=== PATIENT | female | born 1960 | race Caucasian/White ===

== ENCOUNTER 2016-12-22 21:02 | Emergency (ER) | payer BC ==
[2015-04-05 16:35] VITALS: BMI 27.4
[~2016-12-22 21:02] MED LIST: DIAMOX250 MG PO; KEPPRA250 MG PO; LISINOPRIL10 MG PO; PROZAC10 MG PO
[2016-12-22 21:33] LABS: APPEARANCE CLEAR (CLEAR); BILIRUBIN NEGATIVE (NEGATIVE); COLOR YELLOW (YELLOW); EPITHELIAL CELLS NSEEN /hpf (0-5); GLUCOSE NEGATIVE (NEGATIVE); KETONE NEGATIVE (NEGATIVE); LEUKOCYTE ESTERASE 1+ (NEGATIVE); NITRITE POSITIVE (NEGATIVE); PROTEIN 1+ mg/dL (NEGATIVE); SPECIFIC GRAVITY 1.015 (1.005-1.020); UROBILINOGEN NORMAL (NORMAL); WHITE CELLS - URINE 25-50 /hpf (0-5)
[2016-12-22 21:34] LABS: BACTERIA MODERATE /hpf (NONE SEEN); CALCIUM OXALATE CRYSTALS 0-5 /hpf (NONE SEEN)
== END 2016-12-22 22:45 | disposition home or self-care (01) ==
LOC: D.ER 21:02
PROVIDERS: Emergency Medicine
DX: N39.0 Urinary tract infection, site not specified (principal); I10 Essential (primary) hypertension

== ENCOUNTER 2017-07-18 19:19 | Emergency (ER) | payer BC ==
[2015-04-05 16:35] VITALS: BMI 27.4
[2017-07-18 19:43] LABS: BASOPHILS 0.3 % (0-2); HEMATOCRIT 36.9 % (36.0-48.0); HEMOGLOBIN 12.6 g/dL (12-16); IMMATURE GRANULOCYTES 0.4 % (0-5); LYMPHOCYTES 35.4 % (15-50); MCH 30.7 pg (26.0-34.0); MCHC 34.1 g/dL (31.0-37.0); MEAN PLATELET VOLUME 10.9 fL (7.4-10.4); MONOCYTES 10.7 % (2-11); NEUTROPHILS 51.2 % (40-80); PLATELET COUNT 233 10x3/uL (130-400); RDW 12.4 % (11.5-14.5); WBC 9.4 10x3/uL (4.8-10.8)
[2017-07-18 19:59] LABS: INR 0.87 (0.85-1.17); PROTIME 11.5 SECONDS (11.6-15.0)
[2017-07-18 20:01] LABS: D-DIMER-QUANTITATIVE 0.31 ug/mLFEU (0.20-0.54)
[2017-07-18 20:06] LABS: ALBUMIN 3.3 g/dL (3.4-5.0); ALKALINE PHOSPHATASE 124 U/L (46-116); ALT (SGPT) 76 U/L (10-68); BILIRUBIN - TOTAL 0.22 mg/dL (0.2-1.3); CALC OSMOLALITY 277 mosm/kg (275-300); CARBON DIOXIDE 27.3 mmol/L (21.0-32.0); CHLORIDE - SERUM 104 mmol/L (98-107); GLUCOSE 119 mg/dL (74-106); POTASSIUM - SERUM 3.6 mmol/L (3.5-5.1); PROTEIN - SERUM 6.8 g/dL (6.4-8.2); SODIUM 140 mmol/L (136-145); UREA NITROGEN 8 mg/dL (7-18); eGFR NON AFRICAN AMERICAN 61 mL/min (90-120)
[2017-07-18 20:24] LABS: CKMB 0.8 U/L (0.0-3.6); CREATINE KINASE 576 UL (21-215); MAGNESIUM - SERUM 1.8 mg/dL (1.8-2.4); PRO BNP 287 pg/mL (0-125)
[2017-07-18 20:25] LABS: TROPONIN-I < 0.017 ng/mL (0.000-0.060)
== END 2017-07-18 22:11 | disposition home or self-care (01) ==
LOC: D.ER 19:19
PROVIDERS: Family Medicine
DX: J20.9 Acute bronchitis, unspecified (principal); J45.901 Unspecified asthma with (acute) exacerbation; I10 Essential (primary) hypertension

== ENCOUNTER 2017-12-03 20:38 | Emergency (ER) | payer BC ==
[~2017-12-03] VITALS: Ht 170.2 cm; Wt 81.8 kg
[2017-12-03 21:04] VITALS: Ht 170.2 cm; Wt 81.8 kg
[2017-12-03] MEDS ORDERED: ACETAZOLAMIDE250 MG PO (21:06)
[2017-12-03] MEDS ORDERED: LEVAQUIN500 MG PO (22:24)
[2017-12-03 22:31] VITALS: BP 136/94
== END 2017-12-03 22:32 | disposition home or self-care (01) ==
LOC: D.ER 20:38
DX: N39.0 Urinary tract infection, site not specified (principal); F17.200 Nicotine dependence, unspecified, uncomplicated

== ENCOUNTER 2018-04-24 21:19 | Emergency (ER) | payer BC ==
[~2018-04-24] VITALS: Ht 170.2 cm; Wt 78.2 kg
[~2018-04-24 21:19] MED LIST changes: +ACETAZOLAMIDE250 MG PO; +LEVAQUIN500 MG PO
[2018-04-24 21:22] VITALS: Ht 170.2 cm; Wt 78.2 kg
[2018-04-24] MEDS ORDERED: TORADOL10 MG PO (22:31)
[2018-04-24] MEDS ORDERED: ROBAXIN500 MG PO (22:31)
[2018-04-24 23:00] VITALS: BP 139/79
== END 2018-04-24 23:00 | disposition home or self-care (01) ==
LOC: D.ER 21:19
DX: M54.16 Radiculopathy, lumbar region (principal); M54.31 Sciatica, right side; G40.909 Epilepsy, unspecified, not intractable, without status epilepticus; F17.200 Nicotine dependence, unspecified, uncomplicated

== ENCOUNTER 2018-07-04 18:09 | Emergency (ER) | payer BC ==
[~2018-07-04] VITALS: Ht 170.2 cm; Wt 81.8 kg
[~2018-07-04 18:09] MED LIST changes: +ROBAXIN500 MG PO; +TORADOL10 MG PO
[2018-07-04 18:25] VITALS: Ht 170.2 cm; Wt 81.8 kg
[2018-07-04 19:15] LABS: BASOPHILS 0.4 % (0-2); EOSINOPHILS 0.3 % (0-7); HEMATOCRIT 40.2 % (36.0-48.0); HEMOGLOBIN 14.1 g/dL (12-16); IMMATURE GRANULOCYTES 0.3 % (0-5); LYMPHOCYTES 13.9 % (15-50); MCH 31.5 pg (26.0-34.0); MCHC 35.1 g/dL (31.0-37.0); MCV 89.7 fL (80.0-100.0); MONOCYTES 9.3 % (2-11); NEUTROPHILS 75.8 % (40-80); RBC 4.48 10x6/uL (4.00-5.40); RDW 12.7 % (11.5-14.5); WBC 10.5 10x3/uL (4.8-10.8)
[2018-07-04 19:17] LABS: PLATELET COUNT 294 10x3/uL (130-400)
[2018-07-04 19:32] LABS: ALBUMIN 3.8 g/dL (3.4-5.0); BILIRUBIN - TOTAL 0.48 mg/dL (0.2-1.3); CALCIUM 9.5 mg/dL (8.5-10.1); CARBON DIOXIDE 18.2 mmol/L (21.0-32.0); CREATININE - SERUM 1.1 mg/dL (0.6-1.3); POTASSIUM - SERUM 4.2 mmol/L (3.5-5.1); PROTEIN - SERUM 7.5 g/dL (6.4-8.2)
[2018-07-04] MEDS ORDERED: TAMIFLU75 MG PO (21:58)
[2018-07-04] MEDS ORDERED: TESSALON PERLE100 MG PO (21:58)
[2018-07-04] MEDS ORDERED: ZOFRAN ODT4 MG/UDTAB PO (21:59)
[2018-07-04 22:16] VITALS: BP 157/75
== END 2018-07-04 22:16 | disposition home or self-care (01) ==
LOC: D.ER 18:09
PROVIDERS: Family Medicine
DX: J11.1 Influenza due to unidentified influenza virus with other respiratory manifestations (principal); R00.0 Tachycardia, unspecified; R05 Cough; R68.83 Chills (without fever); M79.18 Myalgia, other site; F17.200 Nicotine dependence, unspecified, uncomplicated

== ENCOUNTER 2018-07-06 17:07 | Inpatient (IN) | payer BC ==
[~2018-07-06] VITALS: Ht 170.2 cm; Wt 81.6 kg
[~2018-07-06 17:07] MED LIST changes: +TAMIFLU75 MG PO; +TESSALON PERLE100 MG PO; +ZOFRAN ODT4 MG/UDTAB PO
[2018-07-06 18:18] LABS: BASOPHILS 0.5 % (0-2); EOSINOPHILS 0.5 % (0-7); HEMATOCRIT 39.1 % (36.0-48.0); HEMOGLOBIN 13.5 g/dL (12-16); IMMATURE GRANULOCYTES 0.3 % (0-5); MCH 30.8 pg (26.0-34.0); MCHC 34.5 g/dL (31.0-37.0); MCV 89.1 fL (80.0-100.0); MONOCYTES 14.5 % (2-11); NEUTROPHILS 71.2 % (40-80); PLATELET COUNT 259 10x3/uL (130-400); RBC 4.39 10x6/uL (4.00-5.40); RDW 12.6 % (11.5-14.5); WBC 10.3 10x3/uL (4.8-10.8)
[2018-07-06 18:32] LABS: ALBUMIN 3.6 g/dL (3.4-5.0); ANION GAP 19.9 mmol/L (8-16); BILIRUBIN - TOTAL 0.52 mg/dL (0.2-1.3); CALCIUM 9.6 mg/dL (8.5-10.1); CARBON DIOXIDE 18.8 mmol/L (21.0-32.0); CREATININE - SERUM 1.1 mg/dL (0.6-1.3); POTASSIUM - SERUM 3.7 mmol/L (3.5-5.1); PROTEIN - SERUM 7.7 g/dL (6.4-8.2)
[2018-07-06 19:28] LABS: APPEARANCE CLEAR (CLEAR); BILIRUBIN NEGATIVE (NEGATIVE); COLOR YELLOW (YELLOW); GLUCOSE NEGATIVE (NEGATIVE); KETONE NEGATIVE (NEGATIVE); NITRITE NEGATIVE (NEGATIVE); PROTEIN TRACE mg/dL (NEGATIVE); SPECIFIC GRAVITY 1.025 (1.005-1.020); UROBILINOGEN NORMAL (NORMAL)
[2018-07-06 19:29] LABS: EPITHELIAL CELLS NSEEN /hpf (0-5); RED CELLS - URINE RARE /hpf (0-5); WHITE CELLS - URINE NSEEN /hpf (0-5)
[2018-07-06 19:52] VITALS: BP 144/92
[2018-07-06 20:01] VITALS: BP 156/71
[2018-07-06 23:49] VITALS: BP 108/61; BMI 28.2
[2018-07-07 04:37] VITALS: BP 131/76
[2018-07-07 09:08] VITALS: BP 117/70
[2018-07-07 16:00] VITALS: BP 100/67
[2018-07-07 20:00] VITALS: BP 123/78
[2018-07-08] VITALS: BP 132/80
[2018-07-08 04:00] VITALS: BP 146/92
[2018-07-08 06:53] LABS: BASOPHILS 0.4 % (0-2); EOSINOPHILS 2.9 % (0-7); HEMOGLOBIN 11.4 g/dL (12-16); IMMATURE GRANULOCYTES 0.3 % (0-5); LYMPHOCYTES 26.4 % (15-50); MCHC 33.5 g/dL (31.0-37.0); MCV 89.5 fL (80.0-100.0); MEAN PLATELET VOLUME 11.8 fL (7.4-10.4); MONOCYTES 11.2 % (2-11); NEUTROPHILS 58.8 % (40-80); PLATELET COUNT 253 10x3/uL (130-400); RDW 12.8 % (11.5-14.5)
[2018-07-08 07:03] LABS: CALCIUM 8.6 mg/dL (8.5-10.1); CARBON DIOXIDE 21.4 mmol/L (21.0-32.0); POTASSIUM - SERUM 3.4 mmol/L (3.5-5.1)
[2018-07-08 07:08] LABS: WBC 7.6 10x3/uL (4.8-10.8)
[2018-07-08 08:24] VITALS: BP 135/81
[2018-07-08 12:00] VITALS: BP 102/59
[2018-07-08 16:13] VITALS: BP 146/75
--- NOTE | 2018-07-08 17:00 | MORECARE ---
CASE MANAGEMENT DISCHARGE SUMMARY PATIENT: JW MELLO UNIT: [id number] ADM DATE: 07/07/18 AGE: 58 : 62 SEX: F ROOM/BED: D.2234 AUTHOR: HOMAR VILLARREAL PHYSICIAN: REFERRING PHYSICIAN: CHUNG WOODRUFF MD DATE OF SERVICE: 07/08/18 Discharge Plan Patient Name: JW MELLO [facility] [facility] 1960 Planned Disposition: Home Anticipated Discharge Date: Discharge Date: Expected LOS: Initial Reviewer: [email or web address] Initial Review Date: 07/08/2018 Generated: 07/08/18 6:00 pm DCPIA - Discharge Planning Initial Assessment Updated by [email or web address]: Dianna Lunsford on 07/08/18 4:54 pm * Is the patient Alert and Oriented? Yes * How many steps to enter\exit or inside your home? 1 flight/0 * PCP Dr. Urena * [facility] * Preadmission Environment Home with Family * ADLs Independent * Equipment None * List name and contact numbers for known caregivers / representatives who currently or will assist patient after discharge: Matthew Mello - [facility] - [phone] * Verbal permission to speak to the caregivers and representatives has been obtained from the patient. Yes * Community resources currently utilized None * Additional services required to return to the preadmission environment? No * Can the patient safely return to the preadmission environment? Yes * Has this patient been hospitalized within the prior 30 days at any hospital? No Patient Name: JW MELLO Page 46323 at 1700 All edits/amendments must be made on the electronic document DICTATION DATE: 07/08/18 1700 BAG END SEWER: PAULINE 07/08/18 1700 RPT#: [id number] DC DATE: STATUS: ADM IN [facility] [address] [place] [address] END OF REPORT
--- NOTE | 2018-07-08 17:09 | MORECARE ---
CASE MANAGEMENT DISCHARGE SUMMARY PATIENT: JW MELLO UNIT: [id number] ADM DATE: 07/07/18 AGE: 58 : 62 SEX: F ROOM/BED: D.2234 AUTHOR: CHERELLE,DOC PHYSICIAN: REFERRING PHYSICIAN: CHUNG WOODRUFF MD DATE OF SERVICE: 07/08/18 Discharge Plan Patient Name: JW MELLO Facility: [facility]:[place] : 1960 Planned Disposition: Home Anticipated Discharge Date: Discharge Date: Expected LOS: Initial Reviewer: [email or web address] Initial Review Date: 07/08/2018 Generated: 07/08/18 6:08 pm Comments DCP- Discharge Planning Updated by [email or web address]: Dianna Lunsford on 07/08/18 4:[address] Patient Name: JW MELLO Admission Status: ER Accout number: [id number] Admission Date: 07-07-2018 : 1960 Admission Diagnosis: Attending: CHUNG WOODRUFF Current LOS: 1 Anticipated DC Date: Planned Disposition: Home Primary Insurance: [id number] [place] [facility] Discharge Planning Comments: CM met with patient to discuss discharge planning, she is alone in the room. She lives with her , 2 adult children and grand children. She is independent with all ADL's and IADL's. She does not have any DME or need any DME. Declines need for HHS. No needs identified. CM will continue to follow and assist with discharge planning/needs. Stroke Coordinator: Dianna Lunsford DCPIA - Discharge Planning Initial Assessment Updated by [email or web address]: Dianna Lunsford on 07/08/18 4:54 pm * Is the patient Alert and Oriented? Yes * How many steps to enter\exit or inside your home? 1 flight/0 * PCP Dr. Urena * [facility] * Preadmission Environment Home with Family * ADLs Independent * Equipment None * List name and contact numbers for known caregivers / representatives who currently or will assist patient after discharge: Matthew Mello - - [phone] * Verbal permission to speak to the caregivers and representatives has been obtained from the patient. Yes * Community resources currently utilized None * Additional services required to return to the preadmission environment? No * Can the patient safely return to the preadmission environment? Yes * Has this patient been hospitalized within the prior 30 days at any hospital? No Last DP export: 07/08/18 4:00 pm Patient Name: JW MELLO Page 25036 at 1709 All edits/amendments must be made on the electronic document DICTATION DATE: 07/08/181707 CITRUS PICKER: PAULINE 07/08/181707 RPT#: [id number] DC DATE: STATUS: ADM IN [facility] [address] [place] [address] END OF REPORT
[2018-07-09] VITALS: BP 115/65
[2018-07-09 05:53] LABS: BASOPHILS 0.3 % (0-2); EOSINOPHILS 0 % (0-7); HEMATOCRIT 34.2 % (36.0-48.0); HEMOGLOBIN 11.3 g/dL (12-16); IMMATURE GRANULOCYTES 0.3 % (0-5); MCH 30.1 pg (26.0-34.0); MEAN PLATELET VOLUME 11.4 fL (7.4-10.4); MONOCYTES 1.2 % (2-11); NEUTROPHILS 83.2 % (40-80); PLATELET COUNT 291 10x3/uL (130-400); RBC 3.76 10x6/uL (4.00-5.40); RDW 13.2 % (11.5-14.5)
[2018-07-09 06:16] LABS: ANION GAP 21.1 mmol/L (8-16); CALCIUM 9.2 mg/dL (8.5-10.1); CARBON DIOXIDE 16.8 mmol/L (21.0-32.0); POTASSIUM - SERUM 3.9 mmol/L (3.5-5.1)
[2018-07-09 08:15] VITALS: BP 133/64
[2018-07-09 12:07] VITALS: BP 122/70
[2018-07-09 13:10] VITALS: Ht 170.2 cm; Wt 81.6 kg
[2018-07-09 16:08] VITALS: BP 102/55
[2018-07-09 20:00] VITALS: BP 107/65
[2018-07-10] VITALS: BP 119/65
[2018-07-10 04:00] VITALS: BP 132/69
[2018-07-10 05:19] LABS: ANION GAP 18.3 mmol/L (8-16); CALCIUM 9.2 mg/dL (8.5-10.1); CARBON DIOXIDE 15.6 mmol/L (21.0-32.0); POTASSIUM - SERUM 3.9 mmol/L (3.5-5.1)
[2018-07-10 05:24] LABS: BASOPHILS 0.2 % (0-2); EOSINOPHILS 0 % (0-7); HEMATOCRIT 32.4 % (36.0-48.0); HEMOGLOBIN 10.6 g/dL (12-16); IMMATURE GRANULOCYTES 0.8 % (0-5); LYMPHOCYTES 10.5 % (15-50); MCH 30.4 pg (26.0-34.0); MCHC 32.7 g/dL (31.0-37.0); MCV 92.8 fL (80.0-100.0); MEAN PLATELET VOLUME 11.5 fL (7.4-10.4); NEUTROPHILS 86.5 % (40-80); RBC 3.49 10x6/uL (4.00-5.40); RDW 13.7 % (11.5-14.5)
[2018-07-10 05:25] LABS: PLATELET COUNT 377 10x3/uL (130-400); WBC 13.5 10x3/uL (4.8-10.8)
[2018-07-10 08:34] VITALS: BP 130/62
[2018-07-10 12:19] VITALS: BP 113/60
[2018-07-10] MEDS ORDERED: SINGULAIR10 MG PO (14:48)
[2018-07-10] MEDS ORDERED: TESSALON PERLE100 MG PO (14:48)
[2018-07-10] MEDS ORDERED: MUCINEX DM ER1 EAC1 PO (14:48)
[2018-07-10] MEDS ORDERED: LEVAQUIN750 MG PO (14:49)
[2018-07-10] MEDS ORDERED: FLORAJEN3 CAPS460 MG PO (14:49)
[2018-07-10] MEDS ORDERED: PREDNISONE10 MG PO (14:49)
[2018-07-10] MEDS ORDERED: SYMBICORT 16010.2 GM INH (14:50)
[2018-07-10] MEDS ORDERED: OMNICEF300 MG PO (14:50)
[2018-07-10] MEDS ORDERED: IPRAT-ALBUT 0.5-3 ML UPD (14:51)
--- NOTE | 2018-07-10 15:39 | MORECARE ---
CASE MANAGEMENT DISCHARGE SUMMARY PATIENT: JW MELLO UNIT: [id number] ADM DATE: 07/07/18 AGE: 58 : 62 SEX: F ROOM/BED: D.2234 AUTHOR: CHERELLE,DOC PHYSICIAN: REFERRING PHYSICIAN: CHUNG WOODRUFF MD DATE OF SERVICE: 07/10/18 Discharge Plan Patient Name: JW MELLO Facility: [facility]:[place] : 1960 Planned Disposition: Home Anticipated Discharge Date: Discharge Date: Expected LOS: Initial Reviewer: [email or web address] Initial Review Date: 07/08/2018 Generated: 07/10/18 4:38 pm Comments DCP- Discharge Planning Updated by [email or web address]: Dianna Lunsford on 07/10/18 2:[address] Patient Name: JW MELLO Encounter No: [id number] : 1960 Primary Insurance: [employer] Anticipated DC Date: Planned Disposition: Home External Planned Provider: : DCP follow-up note: Patient and family in agreement with discharge plan. States her will pick her up. No changes to plan. Case management will follow and assist as needed. Dianna Lunsford DCP- Discharge Planning Updated by [email or web address]: Dianna Lunsford on 07/08/18 4:[address] Patient Name: JW MELLO Admission Status: ER Accout number: [id number] Admission Date: 07-07-2018 : 1960 Admission Diagnosis: Attending: CHUNG WOODRUFF Current LOS: 1 Anticipated DC Date: Planned Disposition: Home Primary Insurance: [employer] Discharge Planning Comments: CM met with patient to discuss discharge planning, she is alone in the room. She lives with her , 2 adult children and grand children. She is independent with all ADL's and IADL's. She does not have any DME or need any DME. Declines need for HHS. No needs identified. CM will continue to follow and assist with discharge planning/needs. Epic Beacon Analyst: Dianna Lunsford DCPIA - Discharge Planning Initial Assessment Updated by [email or web address]: Dianna Lunsford on 07/08/18 4:54 pm * Is the patient Alert and Oriented? Yes * How many steps to enter\exit or inside your home? 1 flight/0 * PCP Dr. Urena * [facility] * Preadmission Environment Home with Family * ADLs Independent * Equipment None * List name and contact numbers for known caregivers / representatives who currently or will assist patient after discharge: Matthew Mello - - [phone] * Verbal permission to speak to the caregivers and representatives has been obtained from the patient. Yes * Community resources currently utilized None * Additional services required to return to the preadmission environment? No * Can the patient safely return to the preadmission environment? Yes * Has this patient been hospitalized within the prior 30 days at any hospital? No Last DP export: 07/08/18 4:08 pm Patient Name: JW MELLO Page 92475 at 1539 All edits/amendments must be made on the electronic document DICTATION DATE: 07/10/18 1538 [employer] SALES: PAULINE 07/10/181537 RPT#: [id number] DC DATE: STATUS: ADM IN [facility] [address] [place] [address] END OF REPORT
[2018-07-10 16:54] VITALS: BP 135/64
--- NOTE | 2018-07-10 19:29 | MORECARE ---
CASE MANAGEMENT DISCHARGE SUMMARY PATIENT: JW MELLO UNIT: [id number] ADM DATE: 07/07/18 AGE: 58 : 62 SEX: F ROOM/BED: D.2234 AUTHOR: CHERELLE,DOC PHYSICIAN: REFERRING PHYSICIAN: CHUNG WOODRUFF MD DATE OF SERVICE: 07/10/18 Discharge Plan Patient Name: JW MELLO Facility: [facility]:[place] : 1960 Planned Disposition: Home Anticipated Discharge Date: Discharge Date: 07/10/2018 Expected LOS: Initial Reviewer: [email or web address] Initial Review Date: 07/08/2018 Generated: 07/10/18 8:28 pm Comments DCP- Discharge Planning Updated by [email or web address]: Laure Patel on 07/10/18 6:[address] CM notified of need for Nebulizer, per nurse Pham. When CM attempted contact with patient, patient was not in her room and the phone numbers for patient, #[phone] (states wrong number) & spouse #[phone] (hang up X2). CM notified nurse Laina, on [place] that the phone numbers are not being answered and nurse verifies phone numbers and states her sister is one of the CM's. Vero states patient request to wait until tomorrow and she (nurse) will notify CM on MS tomorrow. Laure Patel RN CM DCP- Discharge Planning Updated by [email or web address]: Dianna Lunsford on 07/10/18 2:[address] Patient Name: JW MELLO Encounter No: [id number] : 1960 Primary Insurance: [employer] Anticipated DC Date: Planned Disposition: Home External Planned Provider: : DCP follow-up note: Patient and family in agreement with discharge plan. States her will pick her up. No changes to plan. Case management will follow and assist as needed. Dianna Lunsford DCP- Discharge Planning Updated by [email or web address]: Dianna Lunsford on 07/08/18 4:[address] Patient Name: JW MELLO Admission Status: ER Accout number: [id number] Admission Date: 07-07-2018 : 1960 Admission Diagnosis: Attending: CHUNG WOODRUFF Current LOS: 1 Anticipated DC Date: Planned Disposition: Home Primary Insurance: [employer] [facility] Discharge Planning Comments: CM met with patient to discuss discharge planning, she is alone in the room. She lives with her , 2 adult children and grand children. She is independent with all ADL's and IADL's. She does not have any DME or need any DME. Declines need for HHS. No needs identified. CM will continue to follow and assist with discharge planning/needs. Sales Representative [employer]: Dianna Lunsford DCPIA - Discharge Planning Initial Assessment Updated by [email or web address]: Dianna Lunsford on 07/08/18 4:54 pm * Is the patient Alert and Oriented? Yes * How many steps to enter\exit or inside your home? 1 flight/0 * PCP Dr. Urena * [facility] * Preadmission Environment Home with Family * ADLs Independent * Equipment None * List name and contact numbers for known caregivers / representatives who currently or will assist patient after discharge: Matthew Mello - [facility] - [phone] * Verbal permission to speak to the caregivers and representatives has been obtained from the patient. Yes * Community resources currently utilized None * Additional services required to return to the preadmission environment? No * Can the patient safely return to the preadmission environment? Yes * Has this patient been hospitalized within the prior 30 days at any hospital? No Last DP export: 07/10/18 2:39 pm Patient Name: JW MLELO Page 66440 at 1929 All edits/amendments must be made on the electronic document DICTATION DATE: 07/10/181927 CARDIOTHORACIC ANESTHESIA TECHNICIAN: PAULINE 07/10/181927 RPT#: [id number] DC DATE:07/10/18 STATUS: DIS IN [facility] [address] [facility] [place] [address] END OF REPORT
--- NOTE | 2018-07-10 19:45 | CN ---
PATIENT NAME:JW MELLO MEDICAL RECORD: [id number] : 62 LOCATION:D.MS [id number] ADMIT DATE: 07/07/18 ACCOUNT: [id number] CONSULTING PHYSICIAN: SALLIE JONES MD REFERRING PHYSICIAN: CHUNG WOODRUFF MD DATE OF CONSULTATION: 07/08/2018 CONSULT REQUESTING PHYSICIAN: Clare Manzano MD REASON FOR CONSULTATION: Pneumonia, recent flu. HISTORY OF PRESENT ILLNESS: Ms. Mello is a 58-year-old female who has a history of smoking, quit it just a couple of months ago. She had a flu before , cough which is spasmodic in nature. Productive with little phlegm. She was also shortness of breath. The patient came into the ER. Chest radiograph showed she had bilateral infiltrate. REVIEW OF SYSTEMS: As in history of present illness. PAST MEDICAL HISTORY: Paroxysmal congenital dyskinesia. PAST SURGICAL HISTORY: Hysterectomy. ALLERGIES: SHE IS ALLERGIC TO CODEINE. MEDICATIONS: [employer] is reviewed. PERSONAL AND SOCIAL HISTORY: The patient was a smoker until a few months ago. She is still smoking off 1 cigarette off and on, but she has quit not cold turkey. She is a nondrinker. FAMILY HISTORY: Significant for cardiovascular disease. PHYSICAL EXAMINATION: GENERAL: Now, the patient is lying comfortably, but she is not in acute distress. VITAL SIGNS: The blood pressure is 146/75, pulse is 90, respirations 18, temperature 98.1, and SPO2 is 96% on room air. HEENT: Conjunctivae are pink. Sclerae are not icteric. NECK: Supple, no JVD. CHEST: The chest excursion is minimal on both sides. There is prolonged expiration with wheezing. There are bibasilar crackles. HEART: Rhythm regular, normal sound, no murmur. ABDOMEN: Soft, bowel sounds present. No hepatosplenomegaly. RECTAL: Deferred. EXTREMITIES: No cyanosis, no clubbing, no pedal edema. CENTRAL NERVOUS SYSTEM: The patient is awake and alert. There are no obvious cranial nerve abnormality. The gait was not tested. IMAGING: Chest radiograph, there is a prominence of the right hilum with increased interstitial marking on the left compatible with atypical pneumonia. OTHER LABORATORY DATA: CBC: The WBC is 7.6, hemoglobin 11.4, hematocrit 34, CONSULT REPORT [id number] JW MELLO the platelet count is 253. IMPRESSION: 1. Acute exacerbation of chronic obstructive pulmonary disease. 2. Acute cough. 3. Pneumonia. 4. Shortness of breath. 5. Flu influenza A. 6. Tobacco dependence syndrome. RECOMMENDATION: 1. The patient was advised to quit smoking. 2. Levaquin IV. 3. Add Rocephin IV. 4. Methylprednisolone IV, adjust the dosage. 5. Brovana, budesonide nebulizer. 6. Albuterol ipratropium nebulizer. 7. Mucinex DM 2 tablets b.i.d. and follow up labs and chest radiograph. Dr. Manzano, thank you for involving me in the care of Ms. Mello. TRANSINT:[id number] Voice Confirmation ID: [id number] DOCUMENT ID: [id number] SALLIE JONES MD at 1945 CC: [id number] DICTATION DATE: 07/08/181907 TALENT ASSOCIATE: 07/08/18 2303 DIS IN 07/10/18 [id number] [place] [address]
--- NOTE | 2018-07-11 07:19 | MORECARE ---
CASE MANAGEMENT DISCHARGE SUMMARY PATIENT: JW MELLO UNIT: [id number] ADM DATE: 07/07/18 AGE: 58 : 62 SEX: F ROOM/BED: D.2234 AUTHOR: CHERELLE,DOC PHYSICIAN: REFERRING PHYSICIAN: CHUNG WOODRUFF MD DATE OF SERVICE: 07/11/18 Discharge Plan Patient Name: JW MELLO Facility: [facility]:[place] : 1960 Planned Disposition: Home Anticipated Discharge Date: Discharge Date: 07/10/2018 Expected LOS: Initial Reviewer: [email or web address] Initial Review Date: 07/08/2018 Generated: 07/11/18 8:18 am Comments DCP- Discharge Planning Updated by [email or web address]: Dianna Lunsford on 07/11/18 6:[address] ORDER FOR NEBULIZER SENT TO [facility] IN [facility] PER PT REQUEST. I WILL CALL WHEN THEY OPEN AT 9AM. DCP- Discharge Planning Updated by [email or web address]: Laure Patel on 07/10/18 6:[address] CM notified of need for Nebulizer, per nurse Pham. When CM attempted contact with patient, patient was not in her room and the phone numbers for patient, #[phone] (states wrong number) & spouse #[phone] (hang up X2). CM notified nurse Laina, on [place] that the phone numbers are not being answered and nurse verifies phone numbers and states her sister is one of the CM's. Vero states patient request to wait until tomorrow and she (nurse) will notify CM on MS tomorrow. Laure Patel RN CM DCP- Discharge Planning Updated by [email or web address]: Dianna Lunsford on 07/10/18 2:[address] Patient Name: JW MELLO Encounter No: [id number] : 1960 Primary Insurance: [employer] Anticipated DC Date: Planned Disposition: Home External Planned Provider: : DCP follow-up note: Patient and family in agreement with discharge plan. States her will pick her up. No changes to plan. Case management will follow and assist as needed. Dianna Lunsford DCP- Discharge Planning Updated by [email or web address]: Dianna Lunsford on 07/08/18 4:[address] Patient Name: JW MELLO Admission Status: ER Accout number: [id number] Admission Date: 07-07-2018 : 1960 Admission Diagnosis: Attending: CHUNG WOODRUFF Current LOS: 1 Anticipated DC Date: Planned Disposition: Home Primary Insurance: [employer] [facility] Discharge Planning Comments: CM met with patient to discuss discharge planning, she is alone in the room. She lives with her , 2 adult children and grand children. She is independent with all ADL's and IADL's. She does not have any DME or need any DME. Declines need for HHS. No needs identified. CM will continue to follow and assist with discharge planning/needs. Desizing Machine Back Tender: Dianna Lunsford DCPIA - Discharge Planning Initial Assessment Updated by [email or web address]: Dianna Lunsford on 07/08/18 4:54 pm * Is the patient Alert and Oriented? Yes * How many steps to enter\exit or inside your home? 1 flight/0 * PCP Dr. Urena * [facility] * Preadmission Environment Home with Family * ADLs Independent * Equipment None * List name and contact numbers for known caregivers / representatives who currently or will assist patient after discharge: Matthew Mello - - [phone] * Verbal permission to speak to the caregivers and representatives has been obtained from the patient. Yes * Community resources currently utilized None * Additional services required to return to the preadmission environment? No * Can the patient safely return to the preadmission environment? Yes * Has this patient been hospitalized within the prior 30 days at any hospital? No External Providers External Provider: [facility] Next Contact Date: Service Request Date: Service Type: Resolution: Reviewer: Comments: Last DP export: 07/10/18 6:28 pm Patient Name: JW MELLO Page 14428 at 0719 All edits/amendments must be made on the electronic document DICTATION DATE: 07/11/18717 MID LEVEL CLINICIAN: PAULINE 07/11/18717 RPT#: [id number] DC DATE:07/10/18 STATUS: DIS IN [facility] [address] [place] [address] END OF REPORT
--- NOTE | 2018-07-12 17:05 | MORECARE ---
CASE MANAGEMENT DISCHARGE SUMMARY PATIENT: JW MELLO UNIT: [id number] ADM DATE: 07/07/18 AGE: 58 : 62 SEX: F ROOM/BED: D.2234 AUTHOR: CHERELLE,DOC PHYSICIAN: REFERRING PHYSICIAN: CHUNG WOODRUFF MD DATE OF SERVICE: 07/12/18 Discharge Plan Patient Name: JW MELLO Facility: [facility]:[place] : 1960 Planned Disposition: Home Anticipated Discharge Date: Discharge Date: 07/10/2018 Expected LOS: Initial Reviewer: [email or web address] Initial Review Date: 07/08/2018 Generated: 07/12/18 6:05 pm Comments DCP- Discharge Planning Updated by [email or web address]: Dianna Lunsford on 07/11/18 6:[address] ORDER FOR NEBULIZER SENT TO [facility] IN [facility] PER PT REQUEST. I WILL CALL WHEN THEY OPEN AT 9AM. DCP- Discharge Planning Updated by [email or web address]: Laure Patel on 07/10/18 6:[address] CM notified of need for Nebulizer, per nurse Pham. When CM attempted contact with patient, patient was not in her room and the phone numbers for patient, #[phone] (states wrong number) & spouse #[phone] (hang up X2). CM notified nurse Laina, on [place] that the phone numbers are not being answered and nurse verifies phone numbers and states her sister is one of the CM's. Vero states patient request to wait until tomorrow and she (nurse) will notify CM on MS tomorrow. Laure Patel RN CM DCP- Discharge Planning Updated by [email or web address]: Dianna Lunsford on 07/10/18 2:[address] Patient Name: JW MELLO Encounter No: [id number] : 1960 Primary Insurance: [employer] Anticipated DC Date: Planned Disposition: Home External Planned Provider: : DCP follow-up note: Patient and family in agreement with discharge plan. States her will pick her up. No changes to plan. Case management will follow and assist as needed. Dianna Lunsford DCP- Discharge Planning Updated by [email or web address]: Dianna Lunsford on 07/08/18 4:[address] Patient Name: JW MELLO Admission Status: ER Accout number: [id number] Admission Date: 07-07-2018 : 1960 Admission Diagnosis: Attending: CHUNG WOODRUFF Current LOS: 1 Anticipated DC Date: Planned Disposition: Home Primary Insurance: [employer] [facility] Discharge Planning Comments: CM met with patient to discuss discharge planning, she is alone in the room. She lives with her , 2 adult children and grand children. She is independent with all ADL's and IADL's. She does not have any DME or need any DME. Declines need for HHS. No needs identified. CM will continue to follow and assist with discharge planning/needs. Thermospray Operator: Dianna Lunsford DCPIA - Discharge Planning Initial Assessment Updated by [email or web address]: Dianna Lunsford on 07/08/18 4:54 pm * Is the patient Alert and Oriented? Yes * How many steps to enter\exit or inside your home? 1 flight/0 * PCP Dr. Urena * [facility] * Preadmission Environment Home with Family * ADLs Independent * Equipment None * List name and contact numbers for known caregivers / representatives who currently or will assist patient after discharge: Matthew Mello - - [phone] * Verbal permission to speak to the caregivers and representatives has been obtained from the patient. Yes * Community resources currently utilized None * Additional services required to return to the preadmission environment? No * Can the patient safely return to the preadmission environment? Yes * Has this patient been hospitalized within the prior 30 days at any hospital? No Last DP export: 07/11/18 6:18 a Patient Name: JW MELLO Page 77441 at 1705 All edits/amendments must be made on the electronic document DICTATION DATE: 07/12/181704 HEAT TREATMENT TECHNICIAN: PAULINE 07/12/181704 RPT#: [id number] DC DATE:07/10/18 STATUS: DIS IN [facility] [address] [place] [address] END OF REPORT
== END 2018-07-10 17:45 | disposition home or self-care (01) | DRG 194 ==
LOC: D.ER 17:07 → OBSVTIME 18:52 → D.EDHOLD 18:52 → D.MS 20:35 → D.SDCHOLD 07-09 10:43 → D.MS 07-09 10:49
PROVIDERS: Family Medicine; ADMIT Internal Medicine Nephrology
DX: J18.9 Pneumonia, unspecified organism (principal); J44.1 Chronic obstructive pulmonary disease with (acute) exacerbation; F17.213 Nicotine dependence, cigarettes, with withdrawal

== ENCOUNTER → 2019-06-28 04:45 | Outpatient (CLI) | payer BC ==
[2018-07-09 13:10] VITALS: BMI 28.2
[~2019-06-28 04:45] MED LIST changes: +FLORAJEN3 CAPS460 MG PO; +IPRAT-ALBUT 0.5-3 ML UPD; +LEVAQUIN750 MG PO; +MUCINEX DM ER1 EAC1 PO; +OMNICEF300 MG PO; +PREDNISONE10 MG PO; +SINGULAIR10 MG PO; +SYMBICORT 16010.2 GM INH
== END | disposition home or self-care (01) ==
LOC: D.US 04:45
PROVIDERS: ATTEND Family Medicine
DX: R10.11 Right upper quadrant pain (principal)

== ENCOUNTER → 2020-10-15 14:33 | Outpatient (CLI) | payer BC ==
[2020-07-25 01:57] VITALS: BMI 28.2
== END | disposition home or self-care (01) ==
LOC: D.CT 14:30
PROVIDERS: ATTEND Family Medicine
DX: F17.200 Nicotine dependence, unspecified, uncomplicated (principal)

== ENCOUNTER → 2020-12-08 13:51 | Outpatient (CLI) | payer BC ==
[2020-07-25 01:57] VITALS: BMI 28.2
== END | disposition home or self-care (01) ==
LOC: D.LAB 13:51
PROVIDERS: ATTEND Internal Medicine Pulmonary Disease
DX: Z11.52 Encounter for screening for COVID-19 (principal)

== ENCOUNTER → 2020-12-13 08:53 | Outpatient (CLI) | payer BC ==
[2020-07-25 01:57] VITALS: BMI 28.2
== END | disposition home or self-care (01) ==
LOC: D.RT 08:53
PROVIDERS: ATTEND Internal Medicine Pulmonary Disease
DX: R06.09 Other forms of dyspnea (principal); Z11.52 Encounter for screening for COVID-19

== ENCOUNTER → 2020-12-17 08:33 | Outpatient (CLI) | payer BC ==
[2020-07-25 01:57] VITALS: BMI 28.2
== END | disposition home or self-care (01) ==
LOC: D.HCCECHO 08:33
PROVIDERS: ATTEND Internal Medicine Cardiovascular Disease
DX: I20.9 Angina pectoris, unspecified (principal); R94.31 Abnormal electrocardiogram [ECG] [EKG]